=== PATIENT | female | born 1960 | race Two or more races ===

== ENCOUNTER 2021-12-20 07:42 | Day surgery (SDC) | payer OTHER ==
[~2021-12-20 07:42] MED LIST: FEMARA2.5 MG PO; SYNTHROID88 MCG PO; VITAMIN C100 MG PO; ZINC PO
== END 2021-12-20 21:40 | disposition home or self-care (01) ==
LOC: CIR.AMB 07:42
PROVIDERS: ATTEND Surgery
DX: C50.412 Malignant neoplasm of upper-outer quadrant of left female breast (principal); Z17.0 Estrogen receptor positive status [ER+]; R59.0 Localized enlarged lymph nodes; N60.21 Fibroadenosis of right breast; Z20.822 Contact with and (suspected) exposure to COVID-19; Z42.1 Encounter for breast reconstruction following mastectomy; E03.9 Hypothyroidism, unspecified
CPT/HCPCS: 19303; 19340; 38525; 78195; A9541; L8699